=== PATIENT | female | born 1965 ===

== ENCOUNTER 2017-11-28 17:10 | Outpatient (REF) | payer MEDICAID, SELFPAY ==
[2017-11-28 21:20] LABS: Absolute Basophil Count 0.04 k/cumm (0.0-0.2); Absolute Lymphocyte Count 3.83 k/cumm (1.2-3.4); Basophils % 0.3; Eosinophils % 3.2; HCT 38.8 % (36.0-46.0); HGB 12.5 g/dL (12.0-15.5); Immature Grans % 0.8; Lymphocytes % 30.8; Mean Corp. HGB Concentration 32.2 g/dL (32.0-36.0); Mean Corpuscular Hemoglobin 30.9 pg (27.0-33.0); Mean Corpuscular Volume 95.8 fL (80-95); Mean Platelet Volume 11.3 fL (8.0-11.0); Monocytes % 8.8; Neutrophils % 56.1; Platelet Count 617 x1000/uL (130-400); RBC 4.05 m/cumm (4.00-5.20); RBC Distribution Width 16.2 % (11.7-14.6); White Blood Cell Count 12.43 k/cumm (4.4-10.8)
[2017-11-28 21:23] LABS: Absolute Monocyte Count 1.09 k/cumm (0.11-0.7); Absolute Neutrophil Count 6.97 k/cumm (1.2-6.7)
[2017-11-28 21:50] LABS: Anion Gap 8.5 mmol/L (3-11); BUN 5 mg/dL (7-18); CO2 27.5 mmol/L (21.0-32.0); CREATININE 0.58 mg/dL (0.55-1.02); Calcium 8.6 mg/dL (8.5-10.1); Chloride 106 mmol/L (98-107); Glucose 65 mg/dL (70-100); Lipase 58 U/L (73-393); Magnesium 2.1 mg/dL (1.8-2.4); Sodium 142 mmol/L (136-145)
== END 2017-11-28 17:30 ==
LOC: NCHCN 17:10
PROVIDERS: PCP Nurse Practitioner Family; Visit Provider Family Medicine
DX: J18.9 Pneumonia, unspecified organism (principal); D47.3 Essential (hemorrhagic) thrombocythemia; E87.6 Hypokalemia
CPT/HCPCS: 80048; 83690; 83735; 85025

== ENCOUNTER 2018-01-02 16:13 | Outpatient (REF) | payer MEDICAID, SELFPAY ==
[2018-01-02 21:12] LABS: Abs Immature Grans 0.06 k/cumm (0.0-0.09); Absolute Basophil Count 0.04 k/cumm (0.0-0.2); Absolute Eosinophil Count 0.51 k/cumm (0.0-0.7); Absolute Lymphocyte Count 3.58 k/cumm (1.2-3.4); Absolute Monocyte Count 0.98 k/cumm (0.11-0.7); Absolute Neutrophil Count 6.06 k/cumm (1.2-6.7); Basophils % 0.4; Eosinophils % 4.5; HCT 37.9 % (36.0-46.0); HGB 12.5 g/dL (12.0-15.5); Immature Grans % 0.5; Lymphocytes % 31.9; Mean Corpuscular Hemoglobin 31.8 pg (27.0-33.0); Mean Corpuscular Volume 96.4 fL (80-95); Mean Platelet Volume 11.4 fL (8.0-11.0); Monocytes % 8.7; Platelet Count 496 x1000/uL (130-400); RBC 3.93 m/cumm (4.00-5.20); RBC Distribution Width 16.7 % (11.7-14.6); White Blood Cell Count 11.23 k/cumm (4.4-10.8)
[2018-01-02 21:43] LABS: Anion Gap 7.1 mmol/L (3-11); BUN 5 mg/dL (7-18); CO2 29.9 mmol/L (21.0-32.0); CREATININE 0.57 mg/dL (0.55-1.02); Calcium 9.1 mg/dL (8.5-10.1); Chloride 103 mmol/L (98-107); Glucose 75 mg/dL (70-100); Potassium 4.2 mmol/L (3.5-5.1); Sodium 140 mmol/L (136-145)
== END 2018-01-02 16:33 ==
LOC: NCHCN 16:13
PROVIDERS: PCP Nurse Practitioner Family; Visit Provider Family Medicine
DX: E87.6 Hypokalemia (principal); D47.3 Essential (hemorrhagic) thrombocythemia; Z90.81 Acquired absence of spleen; Z01.818 Encounter for other preprocedural examination
CPT/HCPCS: 80048; 85025

== ENCOUNTER 2020-09-08 18:11 | Outpatient (REF) | payer MEDICAID, SELFPAY ==
[2020-09-08 20:36] LABS: HCT 34.4 % (36.0-46.0); MCH 29.5 pg (27.0-33.0); MCV 92.2 fL (80-95); MPV 11.5 fL (8.0-11.0); Platelet Count 477 10^3/uL (130-400); RBC 3.73 10^6/uL (3.93-5.22); RDW 15.9 % (11.7-14.6); RDW-SD 53.5 fL; WBC 13.29 10^3/uL (4.4-10.8)
[2020-09-08 21:10] LABS: ALT 16 U/L (14-59); AST 17 U/L (15-37); Albumin 3.6 g/dL (3.4-5.0); Alkaline Phosphatase 98 U/L (46-116); Anion Gap 11.6 mmol/L (3-11); BUN 6 mg/dL (7-18); Bilirubin, Total 0.2 mg/dL (0.2-1.0); CO2 26.4 mmol/L (21.0-32.0); CREATININE 0.8 mg/dL (0.55-1.02); Calcium 9.2 mg/dL (8.5-10.1); Calculated LDL 191 mg/dL (<100); Chloride 105 mmol/L (98-107); Cholesterol 264 mg/dL (<200); Glucose 86 mg/dL (74-106); HDL Cholesterol 38 mg/dL (40-60); Potassium 3.7 mmol/L (3.5-5.1); Sodium 143 mmol/L (136-145); Total Protein 7.2 g/dL (6.4-8.2); Triglyceride 175 mg/dL (<150)
== END 2020-09-08 18:12 | disposition home or self-care (01) ==
LOC: NCHCN 18:11
PROVIDERS: PCP Nurse Practitioner Family; Visit Provider Nurse Practitioner Family
DX: Z13.220 Encounter for screening for lipoid disorders (principal); R16.0 Hepatomegaly, not elsewhere classified; I10 Essential (primary) hypertension; M79.7 Fibromyalgia; E78.00 Pure hypercholesterolemia, unspecified
CPT/HCPCS: 80053; 80061; 85027; 83036

== ENCOUNTER 2020-10-28 14:38 | Outpatient (REF) | payer MEDICAID, SELFPAY ==
[2020-10-28 21:17] LABS: Abs Immature Grans 0.05 10^3/uL (0.0-0.06); Absolute Basophil Count 0.08 10^3/uL (0.0-0.2); Absolute Lymphocyte Count 4.58 10^3/uL (1.2-3.4); Basophils % 0.6; Eosinophils % 5.3; Immature Grans % 0.4; Lymphocytes % 34.4; MCH 29.4 pg (27.0-33.0); MCHC 31.6 % (32.0-36.0); MCV 93.1 fL (80-95); MPV 11.6 fL (8.0-11.0); Monocytes % 5.3; Nucleated RBC 0 %; Platelet Count 494 10^3/uL (130-400); RBC 4.08 10^6/uL (3.93-5.22); RDW 15.1 % (11.7-14.6); RDW-SD 52.2 fL; Reticulocyte 1.3 % (0.5-2.4); WBC 13.32 10^3/uL (4.4-10.8)
[2020-10-28 21:20] LABS: Absolute Eosinophil Count 0.71 10^3/uL (0.0-0.7); Absolute Monocyte Count 0.71 10^3/uL (0.1-0.8); Absolute Neutrophil Count 7.19 10^3/uL (1.2-6.7)
[2020-10-28 21:26] LABS: Iron 30 ug/dL (50-170); Total Iron Binding Capacity 296 ug/dL (250-450); Transferrin Sat 10 % (15-50)
[2020-10-28 21:50] LABS: Ferritin 252 ng/mL (8-252); Folate 4.1 ng/mL (8.6-20.0); Vitamin B12 359 pg/mL (193-986)
[2020-10-28 21:53] LABS: Diff Comment Agrees w/ Instrument; RBC Morphology Normal
== END 2020-10-28 14:39 | disposition home or self-care (01) ==
LOC: NCHCN 14:38
PROVIDERS: PCP Nurse Practitioner Family; Visit Provider Nurse Practitioner Family
DX: D64.9 Anemia, unspecified (principal)
CPT/HCPCS: 82607; 82728; 82746; 83540; 83550; 85025; 85045

== ENCOUNTER 2021-03-02 21:03 | Outpatient (REF) | payer MEDICAID, SELFPAY ==
[2021-03-02 21:23] LABS: HCT 36.8 % (36.0-46.0); HGB 11.5 g/dL (11.2-15.7); MCH 30.6 pg (27.0-33.0); MCHC 31.3 % (32.0-36.0); MCV 97.9 fL (80-95); MPV 11.9 fL (8.0-11.0); Platelet Count 374 10^3/uL (130-400); RBC 3.76 10^6/uL (3.93-5.22); RDW 15.2 % (11.7-14.6); WBC 13.13 10^3/uL (4.4-10.8)
[2021-03-02 21:40] LABS: Iron 124 ug/dL (50-170); Total Iron Binding Capacity 279 ug/dL (250-450); Transferrin Sat 44 % (15-50)
[2021-03-02 22:00] LABS: Ferritin 247 ng/mL (8-252); Vitamin B12 296 pg/mL (193-986)
[2021-03-02 22:03] LABS: Folate > 20.0 ng/mL (8.6-20.0)
== END 2021-03-02 21:04 | disposition home or self-care (01) ==
LOC: NCHCN 21:03
PROVIDERS: PCP Nurse Practitioner Family; Visit Provider Nurse Practitioner Family
DX: D64.9 Anemia, unspecified (principal)
CPT/HCPCS: 85027; 82607; 82728; 82746; 83540; 83550